=== PATIENT | male | born 1980 | race Caucasian/White ===

== ENCOUNTER 2021-01-02 09:26 | Day surgery (SDC) | payer SELFPAY ==
[2021-01-02] VITALS (13 sets, daily range): BP systolic 130–176; BP diastolic 80–110; PULSE 46–74; RESP 15–18; TEMP 36.1–37.1; O2SAT 98–200; BMI 21.7
--- NOTE | 2021-01-02 09:41 | W.ED.MALEGU ---
HPI - Male Genitourinary General: Chief complaint: Urogenital-Male Stated complaint: testicle burning and pain Time Seen by Provider: 01/02/21 09:40 History of Present Illness: HPI Narrative: Patient is a 40-year-old male comes to the ED with testicle pain and burning. he has had a hernia there for several years now. Patient says this morning he woke up and he was having right scrotal pain and swelling. He says his hernia has never swelled up like this before or had any swelling in his scrotum. He describes the pain as a burning and aching sensation he rates it a 10 out of 10. He woke up this morning and has not urinated yet but feels like he does not have to urinate. Denies any fever, chills, chest pain, shortness of breath, abdominal pain, nausea/vomiting, bowel symptoms. Associated symptoms: Deny dysuria, hematuria, nausea or vomiting Review of Systems Const: Denies: fever(s), chills or fatigue Eyes: Denies: change in vision or eye discomfort ENMT: Denies: throat pain, odynophagia, nasal discharge or nasal congestion Card: Denies: chest pain, palpitations, edema, swelling of feet/ankles, dyspnea on exertion or orthopnea Resp: Denies: dyspnea, productive cough or non-productive cough GI: Denies: abdominal pain, nausea, vomiting, diarrhea, constipation or hematochezia : Reports: testicular pain and scrotal swelling; Denies: flank pain, difficulty urinating, dysuria or hematuria Musc: Denies: neck pain, back pain or extremity swelling Skin/Breast: Denies: rash or new lesions Neuro: Denies: headache(s), numbness in extremities or weakness in extremities [facility] ED PFSH: Social History Smoking and tobacco status: current every day smoker Physical Exam Const: COMMON NORMALS: no acute distress, patient oriented x3 and alert HENMT: COMMON NORMALS: normocephalic HEAD & SCALP: normocephalic MOUTH: Normal oral and palatal mucosa present THROAT: posterior oropharynx normal and uvula midline Neck/C-Spine: COMMON NORMALS: supple GENERAL: Yes normal visual inspection Resp: COMMON NORMALS: normal respiratory effort, No retractions, No use of accessory muscles and clear to auscultation bilaterally AUSCULTATION: clear to auscultation bilaterally Cardio: COMMON NORMALS: regular rate, regular rhythm, S1 normal heart sound present, S2 normal heart sound present, No gallops present (Cardio), No clicks present (Cardio), No murmurs present (Cardio) and Peripheral pulses 2+ throughout RATE: regular rate RHYTHM: regular rhythm HEART SOUNDS: S1 normal heart sound present and S2 normal heart sound present PERIPHERAL PULSES: Peripheral pulses 2+ throughout GI: COMMON NORMALS: Normal to inspection, nondistended, normoactive bowel sounds present, Soft to palpation, non-tender and no masses PALPATION: Yes Soft to palpation : COMMON NORMALS: Yes no CVA tenderness BLADDER/KIDNEY EXAM: Yes no CVA tenderness SCROTUM: Yes Scrotal tenderness present (Right side) and Yes scrotal swelling Scrotal swelling laterality: right OTHER: Patient has swelling from his groin region on the right side that goes down into his right side of the scrotum. Findings likely inguinal hernia. Back/Pelvis: COMMON NORMALS: no CVA tenderness Extremity: COMMON NORMALS: normal to inspection Neuro: COMMON NORMALS: patient oriented x3 and moves all extremities SENSORIUM/ORIENTATION: Yes alert Skin: GENERAL SKIN EXAM: dry skin Course ED course: I gave patient a dose of Dilaudid and some Ativan and then tried to reduce the hernia. Pain was well controlled during reduction I was unable to reduce the hernia. The hernia extended into the scrotum and it was very firm upon palpation. Consultations: Consultation #1: I contacted Dr. Rivera and told about patient case and the CT findings of the hernia. The limb I was not able to reduce it here in the ED. Dr. Moreno said he is going to come in here to the ED and evaluated himself and then determine care plan. Time: 13:44 Consultation #2: After Dr. Rivera evaluated patient and looked at CT he determined he is going to take patient straight to the OR. Time: 14:23 Vital Signs: Vital signs: Vital Signs Temperature 98.7 F 01/02/21 09:35 Pulse Rate 56 L 01/02/21 12:51 Respiratory Rate 15 01/02/21 12:51 Blood Pressure 130/86 01/02/21 12:51 Pulse Oximetry 100 01/02/21 12:51 MDM - Male MDM Narrative: Medical decision making narrative: Patient is a 40-year-old male comes to the ED with right scrotal swelling. Patient says he has had hernia on the right side for the past several years. Today he woke up with swelling in his scrotum and severe pain. Exam shows a possible inguinal hernia in the scrotum. Labs were unremarkable. Ultrasound was unable to identify because of swelling. CT of abdomen pelvis showed a inguinal hernia with some fecalization and early obstruction. I tried to reduce hernia myself here in the ED and was unsuccessful. I contacted Dr. Rivera and told him about patient case. He came in and evaluated patient and is going to take patient to the OR to have hernia repaired. Lab Data: Attestation: I reviewed the patient's lab results. Labs: Lab Results 01/02/21 01/02/21 01/02/21 Range/Units 10:24 10:24 11:50 WBC 6.5 (4.0-10.0) 10^3/ uL RBC 4.56 (4.1-5.3) 10^6/u L Hgb 14.0 (11.7-16.6) g/dL Hct 42.4 (42.0-52.0) % MCV 93.0 (80-94) fL MCH 30.7 (28.0-34.0) pg MCHC 33.0 (30.0-36.0) g/dL RDW 13.9 (12.1-15.1) % Plt Count 309 (130-400) 10^3/c mm MPV 10.0 (7.4-10.4) fL Neut % (Auto) 60.0 % Lymph % (Auto) 25.3 % [place] % (Auto) 9.2 % Eos % (Auto) 4.5 % Baso % (Auto) 0.8 % Neut # (Auto) 3.91 (1.8-7.7) 10^3/u L Lymph # (Auto) 1.7 (0.8-4.8) 10^3/u L [place] # (Auto) 0.6 (0.2-0.9) 10^3/u L Eos # (Auto) 0.3 (0.0-0.8) 10^3/u L Baso # (Auto) 0.1 (0.0-0.1) 10^3/u L Nucleated RBC % (a uto) 0 % Nucleated RBCs # 0.0 /100WBC Sodium Cancelled 132 L Potassium Cancelled 4.0 Chloride Cancelled 99 Carbon Dioxide Cancelled 25 Anion Gap Cancelled 12.0 BUN Cancelled 9 Creatinine Cancelled 0.8 GFR Calculation Cancelled 107.1 Glucose Cancelled 96 Calculated Osmolal ity Cancelled 273 L Calcium Cancelled 8.8 Total Bilirubin Cancelled 0.5 AST Cancelled 17 ALT Cancelled 13 Alkaline Phosphata se Cancelled 74 Total Protein Cancelled 7.2 Albumin Cancelled 4.1 Globulin Cancelled 3.1 Urine Color (Yellow) Urine Appearance (CLEAR) Urine pH (5-7) Ur Specific Gravit y (1.005-1.030) Urine Protein (Negative) Urine Glucose (UA) (Normal) Urine Ketones (Negative) Urine Blood (Negative) Urine Nitrate (Negative) Urine Bilirubin (Negative) Urine Urobilinogen (Negative) mg/dL Ur Leukocyte Genet ase (Negative) Urine RBC (0-2) /hpf Urine WBC (0-5) /hpf Ur Squamous Epith Cells (0-5) /hpf Amorphous Sediment Urine Bacteria (NONE) /hpf 01/02/21 Range/Units 12:52 WBC (4.0-10.0) 10^3/ uL RBC (4.1-5.3) 10^6/u L Hgb (11.7-16.6) g/dL Hct (42.0-52.0) % MCV (80-94) fL MCH (28.0-34.0) pg MCHC (30.0-36.0) g/dL RDW (12.1-15.1) % Plt Count (130-400) 10^3/c mm MPV (7.4-10.4) fL Neut % (Auto) % Lymph % (Auto) % [place] % (Auto) % Eos % (Auto) % Baso % (Auto) % Neut # (Auto) (1.8-7.7) 10^3/u L Lymph # (Auto) (0.8-4.8) 10^3/u L [place] # (Auto) (0.2-0.9) 10^3/u L Eos # (Auto) (0.0-0.8) 10^3/u L Baso # (Auto) (0.0-0.1) 10^3/u L Nucleated RBC % (a uto) % Nucleated RBCs # /100WBC Sodium Potassium Chloride Carbon Dioxide Anion Gap BUN Creatinine GFR Calculation Glucose Calculated Osmolal ity Calcium Total Bilirubin AST ALT Alkaline Phosphata se Total Protein Albumin Globulin Urine Color Yellow (Yellow) Urine Appearance Clear (CLEAR) Urine pH 6 (5-7) Ur Specific Gravit y 1.015 (1.005-1.030) Urine Protein Neg (Negative) Urine Glucose (UA) Norm (Normal) Urine Ketones 1+ H (Negative) Urine Blood Neg (Negative) Urine Nitrate Negative (Negative) Urine Bilirubin Neg (Negative) Urine Urobilinogen Norm (Negative) mg/dL Ur Leukocyte Genet ase Negative (Negative) Urine RBC None (0-2) /hpf Urine WBC None (0-5) /hpf Ur Squamous Epith Cells None (0-5) /hpf Amorphous Sediment Not Reportable Urine Bacteria Trace (NONE) /hpf Imaging Data: US: Attestation: I personally reviewed and interpreted this imaging study as follows: Radiologist's impression: [address] [address] Ultrasound Report Signed Patient: Benton Khan Unit #: [id number] : 1980 Age/Sex: 40 / M ADM Date: 01/02/21 Loc: ER Room/Bed: Attending Dr: Ordering Provider/Ordering MD: Ryan Figueroa Date of Service: 01/02/21 Procedure(s): US scrotum [id number] Accession Number(s): [id number] Report Number: [id number] PROCEDURE INFORMATION: Exam: US Scrotum Exam date and time: 01/02/2021 9:57 AM Age: 40 years old Clinical indication: Groin pain; Additional info: Scrotal pain and swelling TECHNIQUE: Imaging protocol: Real-time ultrasound of the scrotum and contents with color Doppler and image documentation. COMPARISON: No relevant prior studies available. FINDINGS: Right testicle: Normal arterial and venous flow. Normal echogenicity. 4 x 3.2 x 3.8 cm. Echogenic foci superior to the right testicle posteriorly. Unclear etiology. Small amount of fluid. Consider CT. Left testicle: Normal arterial and venous flow. Normal echogenicity. 3.1 x 5 x 3 cm Epididymides: Normal. Scrotum: Normal. US/US scrotum [id number] IMPRESSION: Right testicle: Mixed echogenic region/ foci superior to the right testicle posteriorly. Unclear etiology. Small amount of fluid. Consider CT. Prominent epididymis felt unlikely. Correlate regarding trauma. Small hematoma within the differential diagnosis. Hernia felt unlikely. Dictated By: Siddhartha Friedman MD Signed By: Siddhartha Friedman MD Signed Date/Time: 01/02/21 1111 DD/ 1110 CT Abd/Pel: Attestation: I personally reviewed and interpreted this imaging study as follows: Radiologist's impression: [facility] [address] [place] [address] CT Scan Report Signed Patient: Benton Khan Unit #: [id number] : 1980 Age/Sex: 40 / M ADM Date: 01/02/21 Loc: ER Room/Bed: Attending Dr: Ordering Provider/Ordering MD: Ryan Figueroa Date of Service: 01/02/21 Procedure(s): CT abdomen pelvis w con* [id number] Accession Number(s): [id number] Report Number: [id number] PROCEDURE INFORMATION: Exam: CT Abdomen And Pelvis With Contrast Exam date and time: 01/02/2021 11:14 AM Age: 40 years old Clinical indication: Abdominal pain; Additional info: Scrotal pain and swelling TECHNIQUE: Imaging protocol: Computed tomography of the abdomen and pelvis with contrast. Radiation optimization: All CT scans at this facility use at least one of these dose optimization techniques: automated exposure control; mA and/or kV adjustment per patient size (includes targeted exams where dose is matched to clinical indication); or iterative reconstruction. Contrast material: OMNI 300; Contrast volume: 95 ml; Contrast route: INTRAVENOUS (IV); COMPARISON: US scrotum [id number] 01/02/2021 10:23 AM RADIATION DOSE METRICS: Total DLP (mGy-cm): 1287.17 FINDINGS: Liver: Normal. No mass. Gallbladder and bile ducts: Normal. No calcified stones. No ductal dilation. Pancreas: Normal. No ductal dilation. Spleen: Normal. No splenomegaly. Adrenal glands: Normal. No mass. Kidneys and ureters: Normal. No hydronephrosis. Stomach and bowel: Moderate amount stool within the large bowel. Appendix: What is believed to be the appendix is normal in appearance. Nevertheless, there is no discrete evidence of appendicitis. Intraperitoneal space: Unremarkable. No free air. No significant fluid collection. Vasculature: Unremarkable. No abdominal aortic aneurysm. Lymph nodes: Unremarkable. No enlarged lymph nodes. Urinary bladder: Question thickened bladder although somewhat poorly distended. Correlate. Reproductive: Unremarkable as visualized. Bones/joints: Unremarkable. No acute fracture. Soft tissues: Inguinal hernia on the right with bowel likely small bowel extending into the inguinal canal and scrotum. There are a few loops of air and fluid-filled small bowel just proximal to the hernia with fecalization suggestive of a possible early obstruction with transition point likely in the inguinal ring. See image number 71 series 2.. Also, see image number [address]/CT abdomen pelvis w con* [id number] IMPRESSION: Inguinal hernia on the right with bowel likely small bowel extending into the inguinal canal and scrotum. There are a few loops of air and fluid-filled small bowel just proximal to the hernia with fecalization suggestive of a possible early obstruction with transition point likely in the inguinal ring. See image number 71 series 2.. Also, see image number 37 series 602. Correlate regarding reducibility. Radiation Dose CTDIVOL = (mGy): DLP = 1287.17 (mGy-cm) Dictated By: Siddhartha Friedman MD Signed By: Siddhartha Friedman MD Signed Date/Time: 01/02/21 1225 DD/ 1223 Discharge Plan Discharge Clinical Impression: Incarcerated right inguinal hernia Condition: Stable Coding Level of Care Code ED Clinical Services Consultant for [facility] Fwd Exam Comprehensive
--- NOTE | 2021-01-02 09:57 | USR_ITS ---
PROCEDURE INFORMATION: Exam: US Scrotum Exam date and time: 01/02/2021 9:57 AM Age: 40 years old Clinical indication: Groin pain; Additional info: Scrotal pain and swelling TECHNIQUE: Imaging protocol: Real-time ultrasound of the scrotum and contents with color Doppler and image documentation. COMPARISON: No relevant prior studies available. FINDINGS: Right testicle: Normal arterial and venous flow. Normal echogenicity. 4 x 3.2 x 3.8 cm. Echogenic foci superior to the right testicle posteriorly. Unclear etiology. Small amount of fluid. Consider CT. Left testicle: Normal arterial and venous flow. Normal echogenicity. 3.1 x 5 x 3 cm Epididymides: Normal. Scrotum: Normal. US/US scrotum [id number] IMPRESSION: Right testicle: Mixed echogenic region/ foci superior to the right testicle posteriorly. Unclear etiology. Small amount of fluid. Consider CT. Prominent epididymis felt unlikely. Correlate regarding trauma. Small hematoma within the differential diagnosis. Hernia felt unlikely.
[2021-01-02] MEDS: morphine 4 mg/mL SDV 1 mL IVP (10:00)
[2021-01-02] MEDS: ondansetron 2 mg/ML SDV 2 mL 4 MG IVP (10:09)
[2021-01-02 11:01] LABS: Basophils # 0.1 10^3/uL (0.0-0.1); Basophils % 0.8 %; Eosinophils # 0.3 10^3/uL (0.0-0.8); Eosinophils % 4.5 %; Hematocrit 42.4 % (42.0-52.0); Lymphocytes # 1.7 10^3/uL (0.8-4.8); Lymphocytes % 25.3 %; Mean Corpuscular Hemoglobin 30.7 pg (28.0-34.0); Monocytes # 0.6 10^3/uL (0.2-0.9); Monocytes % 9.2 %; Neutrophils # 3.91 10^3/uL (1.8-7.7); Nucleated Red Blood Cells % 0 %; Platelet Count 309 10^3/cmm (130-400); Red Blood Count 4.56 10^6/uL (4.1-5.3); Red Cell Distribution Width 13.9 % (12.1-15.1); White Blood Count 6.5 10^3/uL (4.0-10.0)
--- NOTE | 2021-01-02 11:14 | CTR_ITS ---
PROCEDURE INFORMATION: Exam: CT Abdomen And Pelvis With Contrast Exam date and time: 01/02/2021 11:14 AM Age: 40 years old Clinical indication: Abdominal pain; Additional info: Scrotal pain and swelling TECHNIQUE: Imaging protocol: Computed tomography of the abdomen and pelvis with contrast. Radiation optimization: All CT scans at this facility use at least one of these dose optimization techniques: automated exposure control; mA and/or kV adjustment per patient size (includes targeted exams where dose is matched to clinical indication); or iterative reconstruction. Contrast material: OMNI 300; Contrast volume: 95 ml; Contrast route: INTRAVENOUS (IV); COMPARISON: US scrotum [id number] 01/02/2021 10:23 AM RADIATION DOSE METRICS: Total DLP (mGy-cm): 1287.17 FINDINGS: Liver: Normal. No mass. Gallbladder and bile ducts: Normal. No calcified stones. No ductal dilation. Pancreas: Normal. No ductal dilation. Spleen: Normal. No splenomegaly. Adrenal glands: Normal. No mass. Kidneys and ureters: Normal. No hydronephrosis. Stomach and bowel: Moderate amount stool within the large bowel. Appendix: What is believed to be the appendix is normal in appearance. Nevertheless, there is no discrete evidence of appendicitis. Intraperitoneal space: Unremarkable. No free air. No significant fluid collection. Vasculature: Unremarkable. No abdominal aortic aneurysm. Lymph nodes: Unremarkable. No enlarged lymph nodes. Urinary bladder: Question thickened bladder although somewhat poorly distended. Correlate. Reproductive: Unremarkable as visualized. Bones/joints: Unremarkable. No acute fracture. Soft tissues: Inguinal hernia on the right with bowel likely small bowel extending into the inguinal canal and scrotum. There are a few loops of air and fluid-filled small bowel just proximal to the hernia with fecalization suggestive of a possible early obstruction with transition point likely in the inguinal ring. See image number 71 series 2.. Also, see image number [address]/CT abdomen pelvis w con* [id number] IMPRESSION: Inguinal hernia on the right with bowel likely small bowel extending into the inguinal canal and scrotum. There are a few loops of air and fluid-filled small bowel just proximal to the hernia with fecalization suggestive of a possible early obstruction with transition point likely in the inguinal ring. See image number 71 series 2.. Also, see image number 37 series 602. Correlate regarding reducibility. Radiation Dose CTDIVOL = (mGy): DLP = 1287.17 (mGy-cm)
[2021-01-02] MEDS: iohexol 300 mg/mL 100 mL Btl IV (12:02)
[2021-01-02 12:19] LABS: Alanine Aminotransferase 13 U/L (0-41); Albumin Level 4.1 g/dL (3.5-5.2); Alkaline Phosphatase 74 IU/L (40-130); Aspartate Amino Transferase 17 U/L (0-40); Blood Urea Nitrogen 9 mg/dL (6-20); Calcium 8.8 mg/dL (8.5-10.5); Carbon Dioxide 25 mmol/L (22-29); Chloride 99 mmol/L (98-107); Globulin 3.1 g/dL (1.3-4.6); Glomerular Filtration Rate 107.1 mL/min (90-130); Glucose 96 mg/dL (65-115); Osmolality Calculated 273 mOsm/kg (285-295); Sodium 132 mmol/L (136-145); Total Bilirubin 0.5 mg/dL (0.15-1.2); Total Protein 7.2 g/dL (6.6-8.7)
[2021-01-02] MEDS: LORazepam 2 mg/mL INJ 1 mL 0.5 MG IVP (12:49)
[2021-01-02] MEDS: HYDROmorphone 1 mg/mL INJ 1 mL IVP (12:50)
[2021-01-02 13:31] LABS: Add Urine Culture? No; Bacteria Urine TRACE /hpf; Bilirubin Urine Neg (Negative); Blood Urine Neg (Negative); Glucose Urine UA Norm (Normal); Ketones Urine 1+ (Negative); Leukocyte Esterase Urine Negative (Negative); Nitrate Urine Negative (Negative); Protein Urine Neg (Negative); Specific Gravity, Urine 1.015 (1.005-1.030); Urine Appearance Clear (CLEAR); Urine Color Yellow (Yellow); Urobilinogen Urine Norm (Negative); pH Urine 6 (5-7)
--- NOTE | 2021-01-02 14:15 | P.HP_ITS ---
Providers/Chief Complaint Admitting Physician: Russ Rivera MD Chief Complaint: testicle burning and pain History of Present Illness Chief Complaint: My right groin hurts History of present illness: Mr. Benton Khan is a 40 year old male with unknown medical comorbidities as he is not used to see any providers. Patient presents to the emergency department with worsening pain over the right groin as he is well-known to have right inguinal hernia over the past couple of years but it seems that the swelling got worse and is not able to be pushed back. An attempt was done by the ED provider Dwayne Carolina but he was not able to push it back. Ultrasound was obtained of the scrotum and did show; Right testicle: Mixed echogenic region/ foci superior to the right testicle posteriorly. Unclear etiology. Small amount of fluid. Consider CT. Prominent epididymis felt unlikely. Correlate regarding trauma. Small hematoma within the differential diagnosis. Hernia felt unlikely. Followed by CT scan of the abdomen and pelvis that showed; Inguinal hernia on the right with bowel likely small bowel extending into the inguinal canal and scrotum. There are a few loops of air and fluid-filled small bowel just proximal to the hernia with fecalization suggestive of a possible early obstruction with transition point likely in the inguinal ring. See image number 71 series 2.. Also, see image number 37 series 602. Correlate regarding reducibility. General surgery was consulted for further evaluation and care. Otherwise patient denies any other constitutional symptoms. Patient was seen and evaluated emergency department room #1 Review of Systems General: Reports: 10 or more systems reviewed and unremarkable except in HPI and below Medications/Allergies Home Medications Medication Instructions Recorded Confirmed Last Taken Type No Known Home Medications 01/02/21 01/02/21 Unknown History Allergies Allergy/AdvReac Type Severity Reaction Status Date / Time No Known Allergies Allergy Verified 01/02/21 14:18 PFSH Acute PFSH: Social History (Updated 01/02/21 @ 14:21 by Russ Rivera MD) Smoking and tobacco status: current every day smoker Vitals/I&O/Wt Last Vital Signs Temp 98.7 F 01/02/21 09:35 Pulse 56 L 01/02/21 12:51 Resp 15 01/02/21 12:51 BP 130/86 01/02/21 12:51 Pulse Ox 100 01/02/21 12:51 Weight last 48 hrs Weight 165 lb Physical Exam Const: COMMON NORMALS: no acute distress and patient oriented x3 GENERAL APPEARANCE: cooperative ORIENTATION/CONSCIOUSNESS: Yes awake, Yes oriented to person, Yes oriented to place and Yes oriented to time HENMT: COMMON NORMALS: normocephalic HEAD & SCALP: normocephalic Eye: COMMON NORMALS: Equal, round and reactive pupils present and no scleral icterus PUPIL: Yes Equal, round and reactive pupils present Lymph: LYMPHATIC: no lymphadenopathy noted Chest: COMMONS NORMALS: normal inspection of the chest Resp: COMMON NORMALS: normal respiratory effort and clear to auscultation bilaterally AUSCULTATION: clear to auscultation bilaterally Cardio: COMMON NORMALS: S1 normal heart sound present and S2 normal heart sound present; negative for No murmurs present (Cardio) HEART SOUNDS: S1 normal heart sound present and S2 normal heart sound present GI: COMMON NORMALS: Soft to palpation; negative for No hepatosplenomegaly present INSPECTION: Yes normal to inspection PALPATION: Yes Soft to palpation, No Firmness to palpation present (GI), No Tenderness to palpation present (GI), No Guarding due to palpation present (GI), No Rigid due to palpation, No No hepatosplenomegaly present and Yes Hernia present (Right groin incarcerated hernia) Neuro: COMMON NORMALS: patient oriented x3 SENSORIUM/ORIENTATION: Yes oriented to person, Yes oriented to place and Yes oriented to time Psych: COMMON NORMALS: mental status grossly normal Skin: COMMON NORMALS: no rashes or lesions noted GENERAL SKIN EXAM: no rashes or lesions noted Data : 01/02/21 10:24 01/02/21 11:50 A&P Assessment and plan (1) Incarcerated right inguinal hernia: After thorough history physical exam and reviewing the chart and images with my personal interpretation of the CT scan of the abdomen and pelvis.I did corporate travel counselor the patient for right open inguinal hernia repair with mesh placement. Indications, risks, benefits and alternatives all discussed with the patient and he did agree to proceed accordingly. An informed consent per chart Status: Acute Attestations Medical Necessity Statement*: Outpatient in a bed Time Spent in Patient Care: (>than 50% of time spent in counselling and/or direct pt care on unit) . Coding Level of Care Code Acute Sawing And Assembly Supervisor for [facility] Diagnoses Incarcerated right inguinal hernia K40.30
--- NOTE | 2021-01-02 14:40 | ANES.PREANE2 ---
Pre-Anesthetic Assessment Pre-Anesthetic Assessment: Height/Weight: Height 1.85 m Weight 74.843 kg Temp Pulse Resp BP Pulse Ox 98.7 F 56 L 15 130/86 100 01/02/21 09:35 01/02/21 12:51 01/02/21 12:51 01/02/21 12:51 01/02/21 12:51 Proposed Procedure: Operation Date: 01/02/21 14:50 Proposed Procedures p Incisional Hernia Repair(Right) - Russ Rivera MD Was Beta Ibrahima taken within 24 hours: N/A Was Clonidine taken within 24 hours: N/A Social: Social History: Alcohol and Tobacco Exam: Pre-Anes Outpt Exam: alert, oriented x 3, clear to auscultation bilaterally and regular rate & rhythm Airway: Submandibular: WNL Cervical ROM: WNL MP: 2 Dentition: Chipped Additional comments: Very poor dentition Pulmonary: Pulmonary: COPD Anesthetic Plan: ASA status: 2E Anesthesia: General (RSI) Risk of > 500 ml blood loss (7ml/kg in children): No PFSH Anesthesia PFSH: Social History Smoking and tobacco status: current every day smoker Data Anesthesia CBC & Chem 7: 01/02/21 10:24 01/02/21 11:50 Other Labs: Laboratory Results - last 48 hr 01/02/21 01/02/21 01/02/21 10:24 10:24 11:50 WBC 6.5 RBC 4.56 Hgb 14.0 Hct 42.4 MCV 93.0 MCH 30.7 MCHC 33.0 RDW 13.9 Plt Count 309 MPV 10.0 Neut % (Auto) 60.0 Lymph % (Auto) 25.3 [place] % (Auto) 9.2 Eos % (Auto) 4.5 Baso % (Auto) 0.8 Neut # (Auto) 3.91 Lymph # (Auto) 1.7 [place] # (Auto) 0.6 Eos # (Auto) 0.3 Baso # (Auto) 0.1 Nucleated RBC % (auto) 0 Nucleated RBCs # 0.0 Sodium Cancelled 132 L Potassium Cancelled 4.0 Chloride Cancelled 99 Carbon Dioxide Cancelled 25 Anion Gap Cancelled 12.0 BUN Cancelled 9 Creatinine Cancelled 0.8 GFR Calculation Cancelled 107.1 Glucose Cancelled 96 Calculated Osmolality Cancelled 273 L Calcium Cancelled 8.8 Total Bilirubin Cancelled 0.5 AST Cancelled 17 ALT Cancelled 13 Alkaline Phosphatase Cancelled 74 Total Protein Cancelled 7.2 Albumin Cancelled 4.1 Globulin Cancelled 3.1 Urine Color Urine Appearance Urine pH Ur Specific [place] Urine Protein Urine Glucose (UA) Urine Ketones Urine Blood Urine Nitrate Urine Bilirubin Urine Urobilinogen Ur Leukocyte Esterase Urine RBC Urine WBC Ur Squamous Epith Cells Amorphous Sediment Urine Bacteria 01/02/21 12:52 WBC RBC Hgb Hct MCV MCH MCHC RDW Plt Count MPV Neut % (Auto) Lymph % (Auto) [place] % (Auto) Eos % (Auto) Baso % (Auto) Neut # (Auto) Lymph # (Auto) [place] # (Auto) Eos # (Auto) Baso # (Auto) Nucleated RBC % (auto) Nucleated RBCs # Sodium Potassium Chloride Carbon Dioxide Anion Gap BUN Creatinine GFR Calculation Glucose Calculated Osmolality Calcium Total Bilirubin AST ALT Alkaline Phosphatase Total Protein Albumin Globulin Urine Color Yellow Urine Appearance Clear Urine pH 6 Ur Specific [place] 1.015 Urine Protein Neg Urine Glucose (UA) Norm Urine Ketones 1+ H Urine Blood Neg Urine Nitrate Negative Urine Bilirubin Neg Urine Urobilinogen Norm Ur Leukocyte Esterase Negative Urine RBC None Urine WBC None Ur Squamous Epith Cells None Amorphous Sediment Not Reportable Urine Bacteria Trace Cardiac Studies: No Data to Display
[2021-01-02] MEDS: lidocaine 2% INJ 20 mL INJECTION (16:01)
--- NOTE | 2021-01-02 16:21 | P.OP_ITS ---
Operative Report Date of procedure: January 02, 2021 Pre-op Diagnosis: Incarcerated right groin hernia Post-op diagnosis: same (Incarcerated right groin hernia containing viable bowels mainly large bowel) Post-op Findings: Large indirect inguinal hernia Procedure Done: 1-Right open inguinal hernia repair with mesh placement 2-Excision of lipoma of the cord Implants: Polypropylene Cone and a sheet large size Specimens removed/disposition: Hernial sac and lipoma of the cord Surgeon: Russ Rivera Neckties Painter: Surgical aura Bowden Circulating nurse Zee Anesthesia: General (Andrez Howell and Dr. Jaramillo) Estimated blood loss (mL): 10 Complications: No immediate complication Condition: stable Disposition: same day Brief History: Symptomatic right groin hernia. Full H&P and informed consent per chart. Procedure: Patient was identified in the holding area and right groin was marked by mysel ,patient was taken to the operating room where he was placed in supine position, antibiotic was given with induction, endotracheal tube was placed per anesthesia, prep and drape of both groins and lower abdomen and scrotum including the genitalia was done under the usual sterile technique. Time-out was done verifying the patient's name/date of /planned procedure destination after the procedure, all were in agreement. SCDs confirmed to be functioning, preoperative antibiotics administered per protocol, and beta mike protocol was confirmed. I started with a right groin incision 1-1/2 finger above the inguinal ligament towards the pubic tubercle, used 15 blade knife skin incision , continued to dissect using Bovie to subcutaneous, Mariella's fascia down to the external oblique aponeurosis, large right indirect inguinal hernia extending to the scrotum was identified, external oblique aponeurosis was then incised using a 10 blade knife, after application of 2 hemostats across sides of the fascia and opened it, right ileo-inguinal nerve was safeguard, I managed to dissect and deliver the enlarged spermatic cord out of the wound, and placed a [place] drain for traction and countertraction, I dissected the spermatic cord and the vas deferens is identified and safeguarded ,as I identified a right inguinal hernia sac, noticed that the tissues were edematous but there was no evidence of infection or spillage., the hernia sac was totally dissected until I reached the patulous deep inguinal ring, I opened the hernia sac the contents were viable, there was some serous ascitic fluid that was aspirated. I did apply a pursestring suture with 2-0 silk pop off under vision where I tied down, additional transfixing 2-0 silk suture was applied and the sac went inside the abdominal cavity and I cut the extra sac and sent it for pathology. Attention was now deviated to mesh placement , using polypropylene mesh system was applied tension-free( large size), a cone was applied at the deep inguinal ring stabilized by 2/0 silk suture, then a sheet of mesh was applied onto the floor of the posterior wall of the right inguinal canal and anchored medially to the pubic tubercle then inferiorly to the underlying surface of the inguinal ligament and superiorly to the internal oblique aponeurosis using silk sutures 2/0, both limbs of the mesh encircled the exit of the cord at the deep inguinal ring, and stitched down. The cord maintained to be in good position thorough irrigation of the wound was done with normal saline and closure of the external oblique aponeurosis was done by 2/O Vicryl, followed by approximation of Mariella's fascia by 3-0 Vicryl then skin staple to close the skin, dressing was then applied in the form of dry dressing Counts of instruments, sponges and needles were completed at the end of the procedure. Scrotal support was then placed Patient tolerated the procedure well and was taken to the recovery area after extubation I was present for the whole entire procedure
[2021-01-02] MEDS: sodium chloride 0.9% 1,000 ML 30 ML IV (16:40)
[2021-01-02] MEDS: acetaminophen 1,000 MG/100 ML PIGGYBACK 400 MG IV (16:50)
--- NOTE | 2021-01-02 16:51 | ANE.PACU2 ---
Inpatient post-anesthesia follow up: Vital signs: Temperature 97.6 F Pulse Rate [Monito r] 74 Pulse Rate 49 Respiratory Rate 15 Blood Pressure [Ri ght Arm] 169/108 Blood Pressure Pulse Oximetry 100 Oxygen Delivery Me thod Room Air Oxygen Flow Rate Fraction of Inspir ed Oxygen Hydration adequate: Yes Nausea and vomiting: No Pain level: 2 Mental status: Baseline
--- NOTE | 2021-01-02 18:17 | ANE.PACU2 ---
Inpatient post-anesthesia follow up: Airway intact: Yes Vital signs: Temperature 97 F Pulse Rate [Monito r] 74 Pulse Rate 60 Respiratory Rate 18 Blood Pressure [Ri ght Arm] 161/105 Blood Pressure 160/97 Pulse Oximetry 100 Oxygen Delivery Me thod Room Air Oxygen Flow Rate 6 Fraction of Inspir ed Oxygen Hydration adequate: Yes Nausea and vomiting: No Pain level: 2 Mental status: Baseline
== END 2021-01-02 18:15 | disposition home or self-care (01) ==
LOC: ER 14:16 → OR 14:19
PROVIDERS: Emergency Provider Physician Assistant; Visit Provider Surgery
PROC: (CPT 49507; principal; 2021-01-02 14:30)
DX: K40.30 Unilateral inguinal hernia, with obstruction, without gangrene, not specified as recurrent (principal); D17.6 Benign lipomatous neoplasm of spermatic cord; J44.9 Chronic obstructive pulmonary disease, unspecified; F17.210 Nicotine dependence, cigarettes, uncomplicated
CPT/HCPCS: 49507; 36415; 74177; 76870; 80053; 81001; 85025; 88302; 88304; 96365; C1781; J0330; J0690; J1100; J1170; J2060; J2270; J2405; J2704; J2710; J3010; J3490; J7030; Q9967